=== PATIENT | female | born 1945 ===

== ENCOUNTER 2023-01-27 06:37 | Day surgery (SDC) | payer OTHER ==
[2023-01-27] MEDS ORDERED: MACROBID 100 M100 MG PO (11:56)
== END 2023-01-27 14:55 | disposition home or self-care (01) ==
LOC: CIR.AMB 06:37
PROVIDERS: ATTEND Obstetrics & Gynecology Gynecology
DX: N81.11 Cystocele, midline (principal); N81.6 Rectocele; N81.5 Vaginal enterocele; Z20.822 Contact with and (suspected) exposure to COVID-19; I10 Essential (primary) hypertension; R07.9 Chest pain, unspecified